=== PATIENT | female | born 1960 | race Two or more races ===

== ENCOUNTER 2017-04-25 17:27 | Emergency (ER) | payer OTHER ==
[~2017-04-25] VITALS: Ht 162.6 cm; Wt 69.9 kg
[2017-04-25 17:37] VITALS: BP 116/69
[2017-04-25] MEDS ORDERED: IBUPROFEN 600 MG TABLET PO ONE ×2 (17:58→18:00)
[2017-04-25] MEDS ORDERED: TDAP [DIPH/PERTUSSIS/TET] 0.5 ML VIAL IM ONE ×2 (17:58→18:00)
== END 2017-04-25 18:54 | disposition home or self-care (01) ==
LOC: ER 17:32
DX: S93.492A Sprain of other ligament of left ankle, initial encounter (principal); I10 Essential (primary) hypertension; W10.9XXA Fall (on) (from) unspecified stairs and steps, initial encounter; Y93.01 Activity, walking, marching and hiking; Y92.89 Other specified places as the place of occurrence of the external cause; Y99.8 Other external cause status
CPT/HCPCS: 73610; 90471; 90715; 99284; A4606; Z7610

== ENCOUNTER 2017-05-10 11:15 | Emergency (ER) | payer OTHER ==
[~2017-05-10] VITALS: Ht 157.5 cm; Wt 64.4 kg
[2017-05-10 11:24] VITALS: BP 146/85
== END 2017-05-10 12:11 | disposition home or self-care (01) ==
LOC: ER 11:16
DX: L03.116 Cellulitis of left lower limb (principal); I10 Essential (primary) hypertension
CPT/HCPCS: A4606; Z7610

== ENCOUNTER 2017-12-24 15:36 | Emergency (ER) | payer BC, MEDICAID ==
[~2017-12-24] VITALS: Ht 167.6 cm; Wt 68.0 kg
[2017-12-24 15:54] LABS: BASOPHILS # (AUTO) 0.1 /CMM (0.0-0.2); BASOPHILS % (AUTO) 1.5 % (0.0-2.0); EOSINOPHILS % (AUTO) 0.4 % (0.0-6.0); HEMATOCRIT 46 % (33-45); HEMOGLOBIN 15.3 g/dL (11.5-14.8); LYMPHOCYTES # (AUTO) 1.1 /CMM (0.8-4.8); LYMPHOCYTES % (AUTO) 14.6 % (20.0-44.0); MEAN CORPUSCULAR HEMOGLOBIN 31 PG (26.0-33.0); MEAN CORPUSCULAR HGB CONC 34 g/dl (31.0-36.0); MEAN CORPUSCULAR VOLUME 93 fL (82-100); MONOCYTES # (AUTO) 0.3 /CMM (0.1-1.30); MONOCYTES % (AUTO) 3.8 % (2.0-12.0); NEUTROPHILS % (AUTO) 79.7 % (43.0-81.0); PLATELET COUNT (AUTO) 290 /CMM (150-450); RDW COEFFICIENT OF VARIATION 12.6 (11.5-15.0); WHITE BLOOD COUNT (AUTO) 7.5 K/uL (4.3-11.0)
[2017-12-24] MEDS ORDERED: MORPHINE SULFATE INJ 4 MG/ML DISP.SYRIN ONE ×2 (15:57→18:09)
[2017-12-24] MEDS ORDERED: MORPHINE SULFATE INJ 2 MG/ML DISP.SYRIN IV ONE ×3 (16:00→22:00)
[2017-12-24 16:04] LABS: CALCIUM, SERUM 9.3 mg/dL (8.5-10.1); CREATININE 0.5 mg/dL (0.6-1.3); POTASSIUM 3.4 mmol/L (3.5-5.1)
--- NOTE | 2017-12-24 16:07 | NUR ---
L SIDED CHEST PAIN, RADIATING DOWN L ARM WITH TROUBLE BREATHING X 3 DAYS. PT STS SHE HAD TUMMY TUCK SX 2WKS AGO. PT SEEN & EVAL'D BY DR. COLORADO. EKG DONE & WILL CONT TO MONITOR.
[2017-12-24 16:08] LABS: INR 0.94 (0.85-1.15)
[2017-12-24 16:15] LABS: TROPONIN I 1.832 ng/mL (0.00-0.056)
[2017-12-24] MEDS ORDERED: ASPIRIN 325 MG TABLET ONE (16:18)
--- NOTE | 2017-12-24 16:22 | NUR ---
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
[2017-12-24] MEDS ORDERED: ENOXAPARIN SODIUM 60 MG/0.6 ML DISP.SYRIN SQ ONE (16:30)
[2017-12-24] MEDS ORDERED: NITROGLYCERIN PACKET 1 GM PACKET TOP ONE (16:30)
[2017-12-24] MEDS ORDERED: ENOXAPARIN SODIUM 80 MG/0.8 ML DISP.SYRIN SQ ONE (16:30)
[2017-12-24] MEDS ORDERED: ASPIRIN 325 MG TABLET PO ONE (16:30)
[2017-12-24] MEDS ORDERED: NITROGLYCERIN PACKET 1 GM PACKET ONE (16:31)
--- NOTE | 2017-12-24 16:46 | NUR ---
PT TO CT VIA [facility].
[2017-12-24] MEDS ORDERED: CT SWABBABLE VALVE TRANS SET 1 EA INFUS.SET MC ONE (16:51)
[2017-12-24] MEDS ORDERED: IOHEXOL-350 100 ML VIAL IV ONE (16:51)
[2017-12-24] MEDS ORDERED: IV NS 0.9% 250 ML IV ONE (16:51)
--- NOTE | 2017-12-24 16:53 | NUR ---
CALLED [facility] FOR READ ON CHEST X-RAY
[2017-12-24] MEDS ORDERED: BENA10TA9 PO (16:56)
[2017-12-24] MEDS ORDERED: HYDR25TA4 PO (16:56)
[2017-12-24] MEDS ORDERED: AMLO10TA2 PO (16:56)
[2017-12-24] MEDS ORDERED: BUPR100T5 PO (16:56)
--- NOTE | 2017-12-24 17:24 | NUR ---
CALLED [facility] FOR READ ON CT PULMONARY ANGIOGRAM
--- NOTE | 2017-12-24 17:25 | NUR ---
PT STS LT CP 01/22 STIL, DR. COLORADO AWARE. DENIES SOB, DIZZINESS, N/V @ THIS TIME. ON TELE, NSR NO ECTOPY NOTED. DR. TORRE @ BS FOR EVAL.
[2017-12-24] MEDS ORDERED: NTG 50 MG/D5W250 ML BOTTL 250 ML IV ONE ×2 (17:59→18:00)
--- NOTE | 2017-12-24 18:02 | NUR ---
CALLED [facility] FOR ALS CODE 3 RESPONSE. SPOKE TO EVA. POPE 15 MINUTES; TRIP#[id number]
--- NOTE | 2017-12-24 18:17 | NUR ---
MEDICATED FOR PAIN. STARTED NITRO DRIP 5MCG/MIN PER DR. COLORADO. PT C/O 01/22 LT CHEST PAIN. DENIES SOB, DIZZINESS, N/V @ THIS TIME. AWAITING TRANSFER TO [facility]
--- NOTE | 2017-12-24 18:55 | NUR ---
PT STS " IT FEELS BETTER ", CP 11/21. DENIES SOB, DIZZINESS, N/V @ THIS TIME. ON TELE, NSR, NO ECTOPY NOTED. FAMILY @ BS.
--- NOTE | 2017-12-24 19:54 | NUR ---
SPOKE WITH TRIPP AT [facility] TO UPDATE REGARDING CREW. WILL CALL AGAIN IN 30 MINUTES IF THERE IS NO PROGRESS.
--- NOTE | 2017-12-24 19:59 | NUR ---
REPORT GIVEN TO JACEK CLARK.
--- NOTE | 2017-12-24 20:17 | NUR ---
SPOKE WITH NIMA WITH [facility]. WAS TOLD TO FAX [facility] AND CLINIC[facility] TO [phone]. SHE WILL PAGE DR ASHER FOR A CALL BACK.
--- NOTE | 2017-12-24 20:21 | NUR ---
NO S/S OF DISTRESS NOTED. PT'S FAMLY BEDSIDE. PT STATES NO IMPROVEMNT IN CHEST PAIN. MD MADE AWARE. NITRO TITRATED TO EFFECT. MD AWARE
--- NOTE | 2017-12-24 20:43 | NUR ---
PAGED DR ASHER, TRANSFERRED CALL TO DR COLORADO
--- NOTE | 2017-12-24 20:43 | NUR ---
SPOKE WITH NIMA WITH [facility]. NUMBER FOR DR ASHER IS [phone]. DIRECT LINE TO NIMA [phone].
--- NOTE | 2017-12-24 21:01 | NUR ---
[facility]ACING [facility] TRANSPORT ON WILL CALL
--- NOTE | 2017-12-24 21:12 | NUR ---
PER DR COLORADO, CALLED DR ASHER'S ANSWERING SERVICE; LEFT MESSAGE FOR CALL BACK
--- NOTE | 2017-12-24 21:18 | NUR ---
SPOKE WITH NIMA. PER NIMA ASHER WOULD LIKE US TO CALL [facility] DR. VILLATORO [phone]. UPON SPEAKING WITH [facility], MUST CALL NIMA BACK. PER NIMA ASHER WILL ACCEPT THE PATIENT WHEN/IF THE [facility] ACCEPTS.
--- NOTE | 2017-12-24 21:28 | NUR ---
AUTH#[id number] AUTHORIZATION FOR AMBULANCE TRANSPORT
--- NOTE | 2017-12-24 21:43 | NUR ---
PT IS ASSIGNED ICU BED 101 AT [facility] [phone]. GO TO ER ADMITTING.
[2017-12-24] MEDS ORDERED: MORPHINE SULFATE INJ 2 MG/ML DISP.SYRIN ONE (21:47)
--- NOTE | 2017-12-24 21:48 | NUR ---
TRANSPORT REMOVED FROM WILL CALL. ETA [id number].
--- NOTE | 2017-12-24 22:08 | NUR ---
REPORT GIVEN TO FREIGHT CLERKJACEK PATTEN FOR [facility]
--- NOTE | 2017-12-24 22:28 | NUR ---
SPOKE WITH CORRINE WITH [facility] FOR UPDATED ETA. CREW WILL BE 15 MORE MINUTES
--- NOTE | 2017-12-24 22:32 | NUR ---
SPOKE WITH CORRINE FROM [facility]. THERE WILL BE AN ADDITIONAL DELAY. CREW WILL BE 30 MORE MINUTES
[2017-12-24 22:59] VITALS: BP 122/50
--- NOTE | 2017-12-24 23:03 | NUR ---
REPORT GIVEN TO [facility] CREW FOR [facility]. PT BEING TRANSFERRED ONTO EMS GURNEY. NO S/S OF DISTRESS UPON TRANSFER.
== END 2017-12-24 23:09 | disposition short-term general hospital (02) ==
LOC: ER 15:37
DX: I21.4 Non-ST elevation (NSTEMI) myocardial infarction (principal); I10 Essential (primary) hypertension; F17.200 Nicotine dependence, unspecified, uncomplicated
CPT/HCPCS: 36415; 71045; 71275; 80048; 84484; 85025; 85730; 87081; 93005 ×2; 96365; 96372; 96374; 96375; 96376; 99291; 99292; A4606; J1650; J2270 ×3; J3490; J7050; Q9967; Z7610